=== PATIENT | female | born 1935 | race Two or more races ===

== ENCOUNTER → 2018-11-28 | Outpatient (CLI) | payer OTHER ==
--- NOTE | 2018-11-28 17:02 | RAD ---
EXAM: 3 views left shoulder DATE: 11/28/2018 2:56 PM INDICATION: Decreased range of motion COMPARISON: No Prior FINDINGS/ IMPRESSION: No evidence of acute fracture or dislocation. Decreased bone mineral density. AC joint degenerative changes are seen. Borderline high riding humeral head may be seen with rotator cuff tendinosis or tear. Electronically signed by: Shree Ross MD (11/28/2018 4:59 PM) [facility]
== END | disposition home or self-care (01) ==
LOC: RAD 14:41
PROVIDERS: ATTEND Family Medicine
DX: M25.512 Pain in left shoulder (principal)
CPT/HCPCS: 73030

== ENCOUNTER 2019-05-25 09:23 | Emergency (ER) | payer OTHER ==
[~2019-05-25] VITALS: Ht 147.3 cm; Wt 59.0 kg
[2019-05-25] MEDS ORDERED: HYDROcodone/APAP 5/325MG 1 TAB TABLET PO ONE (10:00)
[2019-05-25] MEDS ORDERED: CYCLOBENZAPRINE 10 MG TABLET. PO ONE (10:00)
[2019-05-25 10:25] LABS: BILIRUBIN,URINE NEGATIVE (NEG); CLARITY,URINE CLEAR; COLOR,URINE YELLOW; NITRITE,URINE NEGATIVE (NEG); PROTEIN,URINE NEGATIVE (NEG-TRACE); UROBILINOGEN,URINE 0.2 mg/dL (0.2 mg/dL)
--- NOTE | 2019-05-25 10:42 | PHYS DOC ---
Past Medical History Past Medical History: Diabetes-Type II, GERD, Hypertension Past Surgical History: Alcohol Use: None Drug Use: None Adult General Chief Complaint Chief Complaint: BACK PAIN OR INJURY HPI HPI Patient is a 83 year old female with history of diabetes type 2, acid reflex, hypertension, who presents to the ED today complaining of throbbing intermittent low back pain nonradiating in nature, patient reports the pain has been going on for years but she feels this good 10 worse in the last 3 weeks. Patient reports she fell down back in March. Patient denies any loss of consciousness when she fell. Patient is [place]-speaking and interpretation is provided by the [facility] Review of Systems Review of Systems Constitutional: Denies fever or chills [] Eyes: Denies change in visual acuity, redness, or eye pain [] HENT: Denies nasal congestion or sore throat [] Respiratory: Denies cough or shortness of breath [] Cardiovascular: No additional information not addressed in HPI [] GI: Denies abdominal pain, nausea, vomiting, bloody stools or diarrhea [] : Denies dysuria or hematuria [] Musculoskeletal: Reports low back pain Integument: Denies rash or skin lesions [] Neurologic: Denies headache, focal weakness or sensory changes [] All other systems were reviewed and found to be within normal limits, except as documented in this note. Current Medications Current Medications Current Medications Medications (Trade) Dose Ordered Sig/Sofiya Start Time Stop Time Status Last Admin Dose Admin Acetaminophen/ Hydrocodone Bitart (Lortab 5/325) 1 tab 1X ONCE 05/25/19 10:00 05/25/19 10:01 DC 05/25/19 10:02 1 TAB Cyclobenzaprine HCl (Flexeril) 10 mg 1X ONCE 05/25/19 10:00 05/25/19 10:01 DC 05/25/19 10:01 10 MG Allergies Allergies Allergies Coded Allergies Type Severity Reaction Last Updated Verified No Known Drug Allergies 05/25/19 No Physical Exam Physical Exam Constitutional: Well developed, well nourished, no acute distress, non-toxic appearance. [] HENT: Normocephalic, atraumatic, bilateral external ears normal, oropharynx moist, no oral exudates, nose normal. [] Eyes: PERRLA, EOMI, conjunctiva normal, no discharge. [] Neck: Normal range of motion, no tenderness, supple, no stridor. [] Cardiovascular:Heart rate regular rhythm, no murmur [] Lungs & Thorax: Bilateral breath sounds clear to auscultation [] Abdomen: Bowel sounds normal, soft, no tenderness, no masses, no pulsatile masses. [] Skin: Warm, dry, no erythema, no rash. [] Back: Diffuse paraspinal muscle tenderness to bilateral lumbar spine worse on the right side, no midline lumbar spine tenderness, no CVA tenderness. [] Extremities: No tenderness, no cyanosis, no clubbing, ROM intact, no edema. [] Neurologic: Alert and oriented X 3, normal motor function, normal sensory function, no focal deficits noted. [] Psychologic: Affect normal, judgement normal, mood normal. [] Current Patient Data Vital Signs Vital Signs Date Time Temp Pulse Resp B/P (MAP) Pulse Ox O2 Delivery O2 Flow Rate FiO2 05/25/19 09:40 98.0 66 16 158/67 (97) 96 Room Air 98.0 Lab Values Laboratory Tests Test 05/25/19 09:40 Urine Collection Type Void Urine Color Yellow Urine Clarity Clear Urine pH 5.0 Urine Specific [place] 1.015 Urine Protein Negative mg/dL (NEG-TRACE) Urine Glucose (UA) Negative mg/dL (NEG) Urine Ketones (Stick) Negative mg/dL (NEG) Urine Blood Small (NEG) Urine Nitrite Negative (NEG) Urine Bilirubin Negative (NEG) Urine Urobilinogen Dipstick 0.2 mg/dL (0.2 mg/dL) Urine Leukocyte Esterase Trace (NEG) Urine RBC 0 /HPF (0-2) Urine WBC 1-4 /HPF (0-4) Urine Squamous Epithelial Cells Few /LPF Urine Bacteria 0 /HPF (0-FEW) EKG EKG [] Radiology/Procedures Radiology/Procedures []PROCEDURE: LUMBAR SPINE 2-3V THORACIC SPINE 3V, LUMBAR SPINE 2-3V History: Back pain. Technique: 3 views thoracic spine and 3 views lumbar spine Comparison: None. Findings: S-shaped curvature of the thoracolumbar spine. No acute thoracic spine fracture. Mild to moderate multilevel thoracic spondylosis. 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 Grade 1 anterolisthesis L5 on S1. Chronic appearing L2 and L3 superior endplate compression fractures although L2 is not well profiled. Moderate multilevel lumbar spondylosis with advanced lower lumbar facet arthropathy. Impression: 1. Chronic appearing mild L2 and L3 superior endplate compression fractures although L2 is not well profiled. Comparison with prior imaging studies would be of benefit. If persistent clinical concern, MRI can better evaluate. 2. Multilevel thoracolumbar spondylosis with S-shaped curvature. Electronically signed by: Anthony Dockery DO (05/25/2019 11:06 AM) [id number] DICTATED and SIGNED BY: ANTHONY DOCKERY DO DATE: 05/25/191105 Course & Med Decision Making Course & Med Decision Making Pertinent Labs and Imaging studies reviewed. (See chart for details) This is a 83-year-old female patient presenting to the ED today with low back pain that is chronic in nature but got worse in the last 3 weeks. Urine analysis is negative, lumbar spine x-rays and thoracic spine x-rays interpreted by r adiologist were noted for chronic mild L2 and L3 superior endplate fractures. No acute findings noted on the thoracic spine x-rays. Prescription for Lidoderm patches provided. Prescriptions for cyclobenzaprine provided. Recommended following up with primary care doctor. Ice elevation encouraged. Dragon Disclaimer Dragon Disclaimer This electronic medical record was generated, in whole or in part, using a voice recognition dictation system. Departure Departure Impression: Primary Impression: Chronic low back pain Disposition: 01 HOME, SELF-CARE Condition: STABLE Referrals: SUAD REDDY MD (PCP) Follow-up in 1-2 weeks Patient Instructions: Back Pain, Adult Additional Instructions: You were evaluated in the emergency room for chronic back pain use the medications prescribed as ordered. Please follow-up with your primary care doctor in the next 1 week. Scripts Cyclobenzaprine Hcl (CYCLOBENZAPRINE HCL) 10 Mg Tablet 1 TAB PO TID, #30 TAB Prov: FARRAH RUIZ APRN 05/25/19 Problem Qualifiers Primary Impression: Chronic low back pain Back pain laterality: bilateral Sciatica presence: without sciatica Qualified Codes: M54.5 - Low back pain; G89.29 - Other chronic pain FARRAH RUIZ APRN May 25, 2019 10:42
[2019-05-25 10:58] LABS: BACTERIA,URINE 0 /HPF (0-FEW); RBC,URINE 0 /HPF (0-2)
[2019-05-25 10:59] LABS: SQUAMOUS EPITHELIAL CELL,UR FEW /LPF
--- NOTE | 2019-05-25 11:09 | RAD ---
THORACIC SPINE 3V, LUMBAR SPINE 2-3V History: Back pain. Technique: 3 views thoracic spine and 3 views lumbar spine Comparison: None. Findings: S-shaped curvature of the thoracolumbar spine. No acute thoracic spine fracture. Mild to moderate multilevel thoracic spondylosis. 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 Grade 1 anterolisthesis L5 on S1. Chronic appearing L2 and L3 superior endplate compression fractures although L2 is not well profiled. Moderate multilevel lumbar spondylosis with advanced lower lumbar facet arthropathy. Impression: 1. Chronic appearing mild L2 and L3 superior endplate compression fractures although L2 is not well profiled. Comparison with prior imaging studies would be of benefit. If persistent clinical concern, MRI can better evaluate. 2. Multilevel thoracolumbar spondylosis with S-shaped curvature. Electronically signed by: Anthony Perales DO (05/25/2019 11:06 AM) [id number]
[2019-05-25 11:30] VITALS: BP 139/63
[2019-05-25] MEDS ORDERED: CYCL10TA2 PO (11:32)
== END 2019-05-25 12:15 | disposition home or self-care (01) ==
LOC: ER 09:23
DX: G89.29 Other chronic pain (principal); M54.5 Low back pain; M47.815 Spondylosis without myelopathy or radiculopathy, thoracolumbar region; E11.9 Type 2 diabetes mellitus without complications; I10 Essential (primary) hypertension; K21.9 Gastro-esophageal reflux disease without esophagitis
CPT/HCPCS: 72072; 72100; 81001; 87086; 99285-25

== ENCOUNTER → 2019-07-12 | Outpatient (CLI) | payer OTHER ==
[~2019-07-12] MED LIST: CYCL10TA2 PO
--- NOTE | 2019-07-12 11:57 | RAD ---
LUMBAR SPINE WO CONTRAST History: Lumbar radiculopathy. Technique: Multiplanar, multi sequential MR imaging was performed of the lumbar spine. Comparison: None Findings: Grade 1 anterolisthesis L4 on L5 and L5 on S1. Otherwise, normal alignment. Normal vertebral body height. No fracture. Conus terminates at the normal location. No evidence of nerve root clumping. Partially imaged left renal cystic lesions. L1-L2: No canal or neuroforaminal narrowing. L2-L3: Small posterior disc bulge. Mild facet arthropathy. No canal or neuroforaminal narrowing. L3-L4: Posterior disc bulge. Moderate facet arthropathy. Ligament of flavum thickening. Mild subarticular recess narrowing. No canal narrowing. No neuroforaminal narrowing. L4-L5: Anterolisthesis. Facet joint fusion. Mild canal narrowing. Subarticular recess narrowing. Mild bilateral neural foraminal narrowing. L5-S1: Anterolisthesis. Disc bulge. Moderate facet arthropathy. No canal narrowing. Mild neuroforaminal narrowing. Impression: 1. Multilevel lumbar spondylosis most prominent L4-L5 and L5-S1. 2. Grade 1 anterolisthesis L4 on L5 and L5 on S1. 3. L4-L5 mild canal narrowing. Electronically signed by: Anthony Perales DO (07/12/2019 11:54 AM) [id number]
== END | disposition home or self-care (01) ==
LOC: MRI 10:48
PROVIDERS: ATTEND Family Medicine
DX: M47.26 Other spondylosis with radiculopathy, lumbar region (principal); M48.061 Spinal stenosis, lumbar region without neurogenic claudication; M47.818 Spondylosis without myelopathy or radiculopathy, sacral and sacrococcygeal region; M46.87 Other specified inflammatory spondylopathies, lumbosacral region
CPT/HCPCS: 72148